=== PATIENT | male | born 1990 | race Caucasian/White ===

== ENCOUNTER → 2017-06-27 11:54 | Outpatient (CLI) | payer OTHER, SELFPAY ==
[2017-06-26 11:14] VITALS: BP 126/83; BMI 33.0
[2017-06-27 14:14] LABS: Absolute Lymphocyte Count 1.77 X10^3/ul (0.83-4.51); Absolute Neutrophil Count 3.8 X10^3/uL (2.0-7.7); Basophil% 1.6 % (0-1); Eosinophil# 0.12 X10^3/uL; Eosinophils% 1.9 % (0-5); Hemoglobin 17.8 g/dl (13.0-16.5); Lymphocyte # 1.77 X10^3/ul (4.0); Lymphocyte % 27.7 % (19-41); Mean Corp Hgb Conc 36.3 g/gl (32-36); Mean Corpuscular Hgb 31.3 pg (27.0-32.0); Mean Corpuscular Volume 86.3 fL (80-94); Mean Platelet Vol. 9.4 fl (6.2-12.0); Monocyte# 0.63 X10^3/uL; Monocyte% 9.8 % (0-10); Neutrophil # 3.77 X10^3/uL (2.7-7.7); Neutrophil % 58.8 % (47-70); Platelet Count 366 K/mm3 (150-450); RBC Distribution Width CV 12.2 % (11.6-14.6); RBC Distribution Width SD 37.9 fl (35.1-43.9); Red Blood Count 5.68 M/mm3 (4.6-6.2); White Blood Count 6.4 K/mm3 (4.4-11.0)
[2017-06-27 14:22] LABS: POSITIVE COUNT NO; POSITIVE DIFFERENTIAL NO; POSITIVE MORPHOLOGY NO
[2017-06-27 14:32] LABS: ALB/GLOB Ratio 1.3 RATIO (0.9-2.4); AST(SGOT) 22 U/L (15-37); Alanine Aminotransfer ALT/SGPT 45 U/L (16-61); Alkaline Phosphatase 52 U/L (45-117); Anion Gap 7 (5-15); BUN 11 mg/dL (7-18); BUN/Creat Ratio 9.6 RATIO (10-20); Calcium,Total 8.6 mg/dL (8.5-10.1); Chloride 105 mmol/L (98-107); Cholesterol 153 mg/dL (200); Creatinine, Serum 1.15 mg/dL (0.70-1.30); EST Glomerular Filtration Rate 80 mL/min (>60); Est Glom Filt Rate - Afr Amer 97 mL/min (>60); Globulin 3.1 g/dL (2.2-4.2); Glucose 81 mg/dL (74-106); High Density Lipoprotein 46 mg/dL; Potassium 3.6 mmol/L (3.5-5.1); Protein, Total 7.1 g/dL (6.4-8.2); Sodium Level 140 mmol/L (136-145); Thyroid Stim Hormone (TSH) 0.91 uIU/mL (0.358-3.74); Triglycerides 66 mg/dL; Very Low Density Lipoprotein 13 mg/dL (5-40)
[2017-06-30 16:09] LABS: Testosterone, Free 16.42 ng/dL (5.00-21.00)
[2017-07-01 08:59] LABS: Testosterone, % Free 3.29 % (1.50-4.20); Testosterone, Total 499 ng/dL (264-916)
== END ==
PROVIDERS: Family Provider Nurse Practitioner Family; PCP Nurse Practitioner Family; Visit Provider Nurse Practitioner Family
DX: E29.1 Testicular hypofunction (principal); Z79.899 Other long term (current) drug therapy; Z13.0 Encounter for screening for diseases of the blood and blood-forming organs and certain disorders involving the immune mechanism; Z13.29 Encounter for screening for other suspected endocrine disorder; Z13.220 Encounter for screening for lipoid disorders
CPT/HCPCS: 36415; 80053; 80061; 84402; 84403; 84443; 85025

== ENCOUNTER → 2017-08-09 09:22 | Outpatient (CLI) | payer OTHER, SELFPAY ==
[2017-08-09 10:09] LABS: Absolute Lymphocyte Count 1.71 X10^3/ul (0.83-4.51); Absolute Neutrophil Count 3.3 X10^3/uL (2.0-7.7); Basophil# 0.06 X10^3/uL; Eosinophil# 0.19 X10^3/uL; Eosinophils% 3.1 % (0-5); Lymphocyte # 1.71 X10^3/ul (4.0); Lymphocyte % 27.9 % (19-41); Mean Corp Hgb Conc 35.6 g/gl (32-36); Mean Corpuscular Hgb 31.6 pg (27.0-32.0); Mean Platelet Vol. 9.2 fl (6.2-12.0); Monocyte# 0.85 X10^3/uL; Monocyte% 13.9 % (0-10); Neutrophil % 53.9 % (47-70); Platelet Count 266 K/mm3 (150-450); RBC Distribution Width CV 12.6 % (11.6-14.6); RBC Distribution Width SD 40.4 fl (35.1-43.9); Red Blood Count 6.07 M/mm3 (4.6-6.2); White Blood Count 6.1 K/mm3 (4.4-11.0)
[2017-08-09 10:19] LABS: Hemoglobin 19.2 g/dl (13.0-16.5)
[2017-08-09 10:20] LABS: POSITIVE COUNT NO; POSITIVE DIFFERENTIAL NO; POSITIVE MORPHOLOGY NO
[2017-08-09 10:35] LABS: ALB/GLOB Ratio 1.3 RATIO (0.9-2.4); AST(SGOT) 23 U/L (15-37); Alanine Aminotransfer ALT/SGPT 34 U/L (16-61); Albumin, Serum 4.1 g/dL (3.2-5.0); Alkaline Phosphatase 49 U/L (45-117); Anion Gap 7 (5-15); BUN 15 mg/dL (7-18); BUN/Creat Ratio 11.4 RATIO (10-20); Calcium,Total 9.1 mg/dL (8.5-10.1); Chloride 103 mmol/L (98-107); Creatinine, Serum 1.32 mg/dL (0.70-1.30); EST Glomerular Filtration Rate 69 mL/min (>60); Est Glom Filt Rate - Afr Amer 83 mL/min (>60); Globulin 3.1 g/dL (2.2-4.2); Glucose 87 mg/dL (74-106); PSA,Total- Diagnostic 0.62 ng/mL (0.0-4.0); Potassium 4.2 mmol/L (3.5-5.1); Protein, Total 7.2 g/dL (6.4-8.2); Sodium Level 139 mmol/L (136-145); Thyroid Stim Hormone (TSH) 0.88 uIU/mL (0.358-3.74)
[2017-08-11 09:57] LABS: Vitamin D,25 Hydroxy 26.4 ng/mL (29.95-100.01)
[2017-08-13 12:07] LABS: Testosterone, Free 16.26 ng/dL (5.00-21.00)
[2017-08-13 14:30] LABS: Testosterone, % Free 4.19 % (1.50-4.20); Testosterone, Total 388 ng/dL (264-916)
== END ==
PROVIDERS: Family Provider Nurse Practitioner Family; PCP Nurse Practitioner Family; Visit Provider Nurse Practitioner
DX: R79.89 Other specified abnormal findings of blood chemistry (principal); R53.83 Other fatigue
CPT/HCPCS: 36415; 80053; 82306; 84153; 84402; 84403; 84443; 85025

== ENCOUNTER → 2017-08-13 12:07 | Outpatient (CLI) | payer OTHER, SELFPAY ==
--- NOTE | 2017-08-13 12:10 | RAD_ITS ---
STUDY: X-RAY CHEST REASON FOR EXAM: Male, 27 years old. Preevaluation for testosterone levels TECHNIQUE: PA and lateral views of the chest. COMPARISON: None. FINDINGS: The lungs are clear and expanded. There is no demonstrated pleural abnormality. Normal size heart. Normal mediastinum and joycelyn. Normal visualized pulmonary arteries. Normal visualized aortic arch and descending thoracic aorta. Normal visualized thoracic spine. Normal visualized ribs, clavicles, and shoulders. There is no demonstrated abnormality of the visualized soft tissue structures of the upper abdomen. RAD/Chest PA and Lateral IMPRESSION: Normal x-ray examination of the chest. Electronically Signed: Kevin Cochran DO at 8:17 EDT Tel , Service support ,
== END ==
PROVIDERS: Family Provider Nurse Practitioner Family; PCP Nurse Practitioner Family; Visit Provider Nurse Practitioner
DX: R53.83 Other fatigue (principal)
CPT/HCPCS: 71046

== ENCOUNTER → 2017-08-13 12:25 | Outpatient (CLI) | payer OTHER, SELFPAY ==
[2017-08-13 12:54] LABS: BUN 13 mg/dL (7-18); Creatinine, Serum 1.24 mg/dL (0.70-1.30); EST Glomerular Filtration Rate 74 mL/min (>60); Glucose 89 mg/dL (74-106)
[2017-08-13 12:55] LABS: ALB/GLOB Ratio 1.4 RATIO (0.9-2.4); AST(SGOT) 19 U/L (15-37); Alanine Aminotransfer ALT/SGPT 32 U/L (16-61); Albumin, Serum 4.2 g/dL (3.2-5.0); Alkaline Phosphatase 50 U/L (45-117); Anion Gap 7 (5-15); BUN/Creat Ratio 10.5 RATIO (10-20); Calcium,Total 8.9 mg/dL (8.5-10.1); Chloride 102 mmol/L (98-107); Est Glom Filt Rate - Afr Amer 89 mL/min (>60); Globulin 2.9 g/dL (2.2-4.2); Hematocrit 49.9 % (40-54); Mean Corpuscular Volume 86.5 fL (80-94); Mean Platelet Vol. 9.7 fl (6.2-12.0); Platelet Count 308 K/mm3 (150-450); Potassium 3.8 mmol/L (3.5-5.1); Protein, Total 7.1 g/dL (6.4-8.2); RBC Distribution Width CV 12.3 % (11.6-14.6); RBC Distribution Width SD 38.7 fl (35.1-43.9); Red Blood Count 5.77 M/mm3 (4.6-6.2); Sodium Level 140 mmol/L (136-145)
[2017-08-13 12:56] LABS: Hemoglobin 17.8 g/dl (13.0-16.5); Mean Corp Hgb Conc 35.7 g/gl (32-36); Mean Corpuscular Hgb 30.8 pg (27.0-32.0)
[2017-08-13 12:57] LABS: Scan Indicated on CBC? Y/N NO
== END ==
PROVIDERS: Family Provider Nurse Practitioner Family; PCP Nurse Practitioner Family; Visit Provider Nurse Practitioner
DX: D58.2 Other hemoglobinopathies (principal)
CPT/HCPCS: 80053; 85027

== ENCOUNTER 2017-08-27 15:51 | Emergency (ER) | payer OTHER, SELFPAY ==
[2017-08-27 15:52] VITALS: BP 187/96; PULSE 88; RESP 18; TEMP 36.8; O2SAT 99; BMI 31.9
--- NOTE | 2017-08-27 15:53 | NURSING ---
NO OLD EKGS
--- NOTE | 2017-08-27 16:01 | EKG12_ITS ---
Test Reason : CP Blood Pressure : / mmHG Vent. Rate : 081 BPM Atrial Rate : 081 BPM P-R Int : 156 ms QRS Dur : 102 ms QT Int : 374 ms P-R-T Axes : 068 056 061 degrees QTc Int : 434 ms Normal sinus rhythm with sinus arrhythmia Normal ECG Confirmed by WILLA MCCLURE, ALVERTO ([id number]), script editor MARKIE RAYMOND ([id number]) on 09/02/2017 8:58:35 AM Referred By: EDILIA/JCARLOS Confirmed By:ALVERTO CROUCH MD
--- NOTE | 2017-08-27 16:01 | RAD_ITS ---
STUDY: X-RAY CHEST REASON FOR EXAM: Male, 27 years old. Chest pain TECHNIQUE: Single AP portable view of the chest. COMPARISON: Prior chest radiograph of August 13, 2017 FINDINGS: The lungs are clear and expanded. There is no demonstrated pleural abnormality. Normal size heart. Normal mediastinum and joycelyn. Normal visualized pulmonary arteries. Normal visualized aortic arch and descending thoracic aorta. Normal visualized thoracic spine. Normal visualized ribs, clavicles, and shoulders. There is no demonstrated abnormality of the visualized soft tissue structures of the upper abdomen. RAD/Chest 1 View (Portable) IMPRESSION: Normal x-ray examination of the chest. Electronically Signed: Trini Wing MD at 16:28 EDT , Service support ,
[2017-08-27] MEDS: Aspirin 81 MG TAB.CHEW 324 MG PO (16:10)
[2017-08-27] MEDS: LORazepam 2 MG/ML Syringe 1 MG IV (16:10)
[2017-08-27 16:14] VITALS: BP 161/86; PULSE 82; RESP 16; O2SAT 97
[2017-08-27] MEDS: 0.9% Normal Saline 1,000 ML 150 ML IV (16:14)
[2017-08-27 16:24] LABS: Absolute Lymphocyte Count 3.92 X10^3/ul (0.83-4.51); Absolute Neutrophil Count 4.8 X10^3/uL (2.0-7.7); Basophil# 0.13 X10^3/uL; Basophil% 1.3 % (0-1); Eosinophil# 0.27 X10^3/uL; Eosinophils% 2.7 % (0-5); Hematocrit 51.2 % (40-54); Lymphocyte # 3.92 X10^3/ul (4.0); Lymphocyte % 38.7 % (19-41); Mean Corp Hgb Conc 36.5 g/gl (32-36); Mean Corpuscular Hgb 31.3 pg (27.0-32.0); Mean Corpuscular Volume 85.8 fL (80-94); Mean Platelet Vol. 9.5 fl (6.2-12.0); Monocyte# 1.05 X10^3/uL; Monocyte% 10.4 % (0-10); Neutrophil # 4.75 X10^3/uL (2.7-7.7); Neutrophil % 46.7 % (47-70); Platelet Count 313 K/mm3 (150-450); RBC Distribution Width CV 11.8 % (11.6-14.6); Red Blood Count 5.97 M/mm3 (4.6-6.2); White Blood Count 10.1 K/mm3 (4.4-11.0)
[2017-08-27 16:26] LABS: Hemoglobin 18.7 g/dl (13.0-16.5); POSITIVE COUNT NO; POSITIVE DIFFERENTIAL NO; POSITIVE MORPHOLOGY NO
[2017-08-27 16:30] LABS: D-Dimer Quantitative (DVT/PE) < 0.27 FEU/ug/m (0.27-0.49)
[2017-08-27 16:32] LABS: Anion Gap 8 (5-15); BUN 14 mg/dL (7-18); BUN/Creat Ratio 10.8 RATIO (10-20); Chloride 105 mmol/L (98-107); EST Glomerular Filtration Rate 70 mL/min (>60); Est Glom Filt Rate - Afr Amer 84 mL/min (>60); Estimated Creatinine Clearance 81.85 ml/min; Glucose 69 mg/dL (74-106); Sodium Level 140 mmol/L (136-145)
[2017-08-27] MEDS: Ketorolac 30 MG/ML Syringe IV (16:45)
--- NOTE | 2017-08-27 16:58 | ED.VISSUMM ---
- ER Visit Summary Date of Service: 08/27/17 Chief Complaint: [Chest pain] History of Present Illness: The patient is a 27 M presents to the emergency department with chest discomfort that started 2 days ago. Patient describes a tightness in his upper chest. Patient states that the discomfort seemed to worsen today and he does develop some numbness and tingling in his left arm. Patient states that he developed a cramp in his left arm and he started to breathe fast. Patient became diaphoretic. Patient is never had symptoms like this before. Patient does not have any history of anxiety. There is no family history of heart disease. Patient states that he was on testosterone until about 4 weeks ago which time he was taken off due to an elevated hemoglobin. Patient denies recent travel or surgery. Patient does not have a history of PE or DVT. [] Physical Examination: [HEENT-PERRLA, EOMI. Cranial nerves II through XII grossly intact. TMs clear. Mucous membranes moist. No adenopathy. Patient slightly anxious appearing and somewhat tearful. Cardiovascular-regular rate and rhythm without murmur or ectopy Lungs-clear to auscultation, chest wall stable without crepitus or subcu emphysema Abdomen-normoactive bowel sounds, soft, nontender, no rebound or rigidity, no peritoneal signs. Extremities-intact ?4, normal range of motion, normal pulses, atraumatic] Test Results: [EKG obtained on arrival showed a sinus rhythm of 81 bpm with occasional PACs. CBC with differential was unremarkable other than an elevated hemoglobin of 18.7 which seems to be a chronic finding when compared with prior lab values. Chemistries were unremarkable. Troponin was less than 0.02. D-dimer was less than 0.27. Chest x-ray showed nothing acute.] Emergency Department Course and Treatment: [And received Ativan 1 mg IV and felt much improved after treatment. Patient also received 30 mill grams of Toradol IV.] Treatment Plan: [Patient will be given a prescription for Ativan. I do not feel his chest pain is cardiac given that he has had continuous pain for several days. I suspect most likely anxiety as the cause of his discomfort. Suspect patient may of had a hyperventilation type syndrome today.] Disposition: [Discharged to home in stable condition] Impression: [Chest pain-atypical Anxiety] This note was generated with [employer] software. It may contain incorrect words, spelling, and punctuation that were not noted in review of the chart prior to signing ED Disposition - Plan for ED Patient: Chief Complaint: Chest Pain Referrals: Emmy Chew [Primary Care Provider] -
--- NOTE | 2017-08-27 17:01 | ED.DCSUM_ITS ---
- ER Visit Summary Date of Service: 08/27/17 Chief Complaint: [Chest pain] History of Present Illness: The patient is a 27 M presents to the emergency department with chest discomfort that started 2 days ago. Patient describes a tightness in his upper chest. Patient states that the discomfort seemed to worsen today and he does develop some numbness and tingling in his left arm. Patient states that he developed a cramp in his left arm and he started to breathe fast. Patient became diaphoretic. Patient is never had symptoms like this before. Patient does not have any history of anxiety. There is no family history of heart disease. Patient states that he was on testosterone until about 4 weeks ago which time he was taken off due to an elevated hemoglobin. Patient denies recent travel or surgery. Patient does not have a history of PE or DVT. [] Physical Examination: [HEENT-PERRLA, EOMI. Cranial nerves II through XII grossly intact. TMs clear. Mucous membranes moist. No adenopathy. Patient slightly anxious appearing and somewhat tearful. Cardiovascular-regular rate and rhythm without murmur or ectopy Lungs-clear to auscultation, chest wall stable without crepitus or subcu emphysema Abdomen-normoactive bowel sounds, soft, nontender, no rebound or rigidity, no peritoneal signs. Extremities-intact ?4, normal range of motion, normal pulses, atraumatic] Test Results: [EKG obtained on arrival showed a sinus rhythm of 81 bpm with occasional PACs. CBC with differential was unremarkable other than an elevated hemoglobin of 18.7 which seems to be a chronic finding when compared with prior lab values. Chemistries were unremarkable. Troponin was less than 0.02. D- dimer was less than 0.27. Chest x-ray showed nothing acute.] Emergency Department Course and Treatment: [And received Ativan 1 mg IV and felt much improved after treatment. Patient also received 30 mill grams of Toradol IV.] Treatment Plan: [Patient will be given a prescription for Ativan. I do not feel his chest pain is cardiac given that he has had continuous pain for several days. I suspect most likely anxiety as the cause of his discomfort. Suspect patient may of had a hyperventilation type syndrome today.] Disposition: [Discharged to home in stable condition] Impression: [Chest pain-atypical Anxiety] This note was generated with [employer] software. It may contain incorrect words, spelling, and punctuation that were not noted in review of the chart prior to signing ED Disposition - Plan for ED Patient: Chief Complaint: Chest Pain Referrals: Emmy Chew [Primary Care Provider] -
--- NOTE | 2017-08-27 17:01 | ED.DEP ---
ED Disposition - Plan for ED Patient: Chief Complaint: Chest Pain Instructions: ED Chest Pain Atypical Unkn Cause, ED Stress React Prescriptions: Lorazepam [Ativan] 1 mg PO TID PRN #15 tab PRN Reason: Anxiety Referrals: Emmy Chew [Primary Care Provider] - 3-5 Days
[2017-08-27 17:17] VITALS: BP 124/88; PULSE 74; RESP 16; O2SAT 100
--- NOTE | 2017-08-27 17:18 | ED.RN ---
THIS NURSE REVIEWED D/C INSTRUCTIONS WITH PT. PT VERBALIZED UNDERSTANDING OF INSTRUCTIONS. IV D/C. IV CATHETER INTACT. PT TOLERATED WELL. PT VISITOR VERBALIZED CONCERN THAT PT HAS HAD A HEADACHE AND IT HAS NOT BEEN ADDRESSED. THIS NURSE INFORMED DR WILSON OF THE SAME. PT INFORMED DR WILSON TO COME SPEAK WITH HIM ABOUT THIS CONCERN.
== END 2017-08-27 17:34 | disposition home or self-care (01) ==
PROVIDERS: Emergency Provider Emergency Medicine; Family Provider Nurse Practitioner; PCP Nurse Practitioner
DX: R07.89 Other chest pain (principal); F41.9 Anxiety disorder, unspecified
CPT/HCPCS: 71045; 80048; 84484; 85025; 85379; 93005; 96361; 96374; 96375; 99285; J7030; A4216

== ENCOUNTER → 2017-09-01 11:00 | Outpatient (CLI) | payer OTHER, SELFPAY ==
[2017-09-01 18:32] LABS: CPK Total, Creatine Kinase 144 U/L (39-308); Ferritin 165 ng/mL (26-388); Iron 109 ug/dL (65-175)
[2017-09-01 19:13] LABS: Absolute Lymphocyte Count 2.26 X10^3/ul (0.83-4.51); Absolute Neutrophil Count 3.8 X10^3/uL (2.0-7.7); Basophil# 0.06 X10^3/uL; Basophil% 0.9 % (0-1); Eosinophil# 0.21 X10^3/uL; Hematocrit 50.6 % (40-54); Lymphocyte # 2.26 X10^3/ul (4.0); Lymphocyte % 32.1 % (19-41); Mean Corp Hgb Conc 35.8 g/gl (32-36); Mean Corpuscular Volume 86.8 fL (80-94); Monocyte# 0.74 X10^3/uL; Monocyte% 10.5 % (0-10); Neutrophil # 3.76 X10^3/uL (2.7-7.7); Neutrophil % 53.5 % (47-70); Platelet Count 278 K/mm3 (150-450); RBC Distribution Width CV 11.8 % (11.6-14.6); RBC Distribution Width SD 37.6 fl (35.1-43.9); Red Blood Count 5.83 M/mm3 (4.6-6.2)
[2017-09-01 19:44] LABS: Hemoglobin 18.1 g/dl (13.0-16.5)
[2017-09-01 19:45] LABS: POSITIVE COUNT NO; POSITIVE DIFFERENTIAL NO; POSITIVE MORPHOLOGY NO
[2017-09-06 08:33] LABS: Myoglobin, Serum 30 ng/mL (28-72)
== END ==
PROVIDERS: Family Provider Nurse Practitioner; PCP Nurse Practitioner; Visit Provider Nurse Practitioner
DX: D58.2 Other hemoglobinopathies (principal)
CPT/HCPCS: 36415; 81270; 82550; 82728; 83540; 83874; 84484; 85025